=== PATIENT | female | born 1950 | race Asian ===

== ENCOUNTER 2018-10-10 06:16 | Day surgery (SDC) | payer OTHER ==
[2018-10-06 13:15] VITALS: BMI 27.8
[2018-10-10] MEDS ORDERED: TROPICAMIDE 1% OPHTH SOLN 15 ML BOTTLE ONE (07:00)
[2018-10-10] MEDS: PHENYLEPHRINE 2.5% OPHTH SOLN 15 ML BOTTLE OD SCH ×5 (07:10→07:30)
[2018-10-10] MEDS: CYCLOPENTOLATE HCL 1% OPHTH SOLN 2 ML BOTTLE OD SCH ×5 (07:10→07:30)
[2018-10-10] MEDS: KETOROLAC TROMETHAMINE 0.5% EYE DROP 1 DROP DROPS OD SCH ×5 (07:10→07:30)
[2018-10-10] MEDS: TROPICAMIDE 1% OPHTH SOLN 15 ML BOTTLE OD SCH ×5 (07:10→07:30)
[2018-10-10] MEDS: OFLOXACIN 0.3% OPHTHALMIC SOLUTION 5 ML BOTTLE OD SCH ×5 (07:10→07:30)
[2018-10-10] MEDS ORDERED: BACITRACIN/POLYMYXIN OPH OINT 3.5 GM TUBE ONE (07:13)
[2018-10-10] MEDS ORDERED: ACETYLCHOLINE 1:100 INTRA-OCUL 20 MG/2 ML KIT ONE (07:14)
[2018-10-10] MEDS ORDERED: TETRACAINE 0.5% OPHTH SOLN 2 ML BOTTLE ONE (07:14)
[2018-10-10] MEDS ORDERED: EPI-SHUGARCAINE (EPINEPHRINE 0.025% & LIDOCAINE-PF 0.75%) 4ML ONE (07:14)
[2018-10-10] MEDS ORDERED: BETAXOLOL HCL 0.25% OPHTHALMIC 10 ML DROPSBTL ONE (07:14)
[2018-10-10] MEDS ORDERED: NEO/POLYMYX B SULF/DEXAMETH OPHTHALMIC 5ML BOTTLE ONE (07:14)
[2018-10-10] MEDS ORDERED: POVIDONE-IODINE 5% OPHTHALMIC PREP 30 ML SOLUTION ONE (07:14)
[2018-10-10] MEDS ORDERED: EPINEPHrine/PF 1 MG/1 ML (1:1,000) AMPULE ONE (07:15)
[2018-10-10] MEDS ORDERED: MIDAZOLAM HCL 2 MG/2 ML SINGLE DOSE VIAL ONE (08:22)
[2018-10-10] MEDS ORDERED: TRYPAN BLUE 0.5 ML DISP.SYRIN ONE (08:22)
[2018-10-10] MEDS ORDERED: ACETAMINOPHEN 325 MG TABLET (FP) PO PRN ×2 (09:41→11:40)
[2018-10-10 10:06] VITALS: TEMP 98.3
[2018-10-10 10:32] VITALS: PULSE 77
--- NOTE | 2018-10-10 10:33 | OP ---
DATE OF OPERATION: 10/10/2018 PREOPERATIVE DIAGNOSIS: Cataract, right eye, hypermature cataract, morgagnian, right eye. POSTOPERATIVE DIAGNOSIS: Cataract, right eye, hypermature morgagnian cataract, right eye. SURGEON: Napoleon Tinsley MD BAND SINGER: Jessica Nation MD PROCEDURE: Hypermature cataract extraction, use of Trypan Blue, with intraocular lens implant, right eye. ANESTHESIA: Topical with sedation. ESTIMATED BLOOD LOSS: Less than 1 mL. COMPLICATIONS: None. SPECIMENS: None. PROCEDURE: The patient was identified in the holding area. After all risks, benefits and alternatives were explained to the patient informed consent was obtained. The right eye was marked with a marking pen and patient then entered the operating room on an eye stretcher. After formal timeout was performed topical tetracaine eyedrops were instilled on to the right eye and the patient was asked to sit up and look straight ahead and the right eye was appropriately marked for the cardinal axis of astigmatism using a toric bubble marker and marking pen. The patient was then asked to lie back down and the right eye was prepped and draped in the usual sterile fashion. An eyelid speculum was placed beneath the eyelids of the right eye. Then, the axis of astigmatism was marked on to the cornea using a toric marking pen and toric dial which was noted to be 95 degrees. Then, a superotemporal paracentesis incision was created using a 15-degree blade air bubble was injected and then Trypan Blue was injected to stain the anterior capsule and then viscoelastic was then injected to replace the Trypan Blue and air bubble into the anterior chamber. A 2.4-mm keratome blade was then used to make an inferotemporal incision. A 360-degree continuous curvilinear capsulorrhexis was then created using bent cystotome and Utrata forceps. Hydrodissection was performed using balanced saline solution on a cannula. Phacoemulsification was introduced and disassembled the nucleus in its entirety. Irrigation/aspiration was then used to remove any remaining cortical material from the eye. The capsular bag was reformed using viscoelastic. Gildardo model [id number] with a power of 9.0 diopters, serial number [id number] was inspected and found to be defect free and injected into the capsular bag Irrigation/aspiration was then used to remove any remaining viscoelastic from the eye including posterior to the optic. Then, the anterior chamber was reformed using balanced saline solution. Then, the intraocular lens was rotated so that the axis of astigmatism on the optic matched the axis of astigmatism on the cornea which was noted to be 95 degrees. Then, intracameral injections of Miochol and Miostat were then administered and the pupil came down and was round. All wounds were hydrated with balanced saline solution. It was noted that the inferotemporal wound was slightly leaky so an interrupted 10-0 nylon suture was placed at the main wound with the knot buried. The anterior chamber was deep. The lens was perfectly centered in the capsular bag with the axis of astigmatism at 95 degrees on the optic matching the cornea. The eye had adequate pressure and there was a red reflex present. Topical antibiotic eyedrops and ointment were then administered to the right eye. The eyelid speculum was removed from the right eye. The right eye was shielded. The patient tolerated the procedure well, left the operating room in stable condition to follow up in the eye clinic tomorrow morning at 10:00. Kasi [id number]
[2018-10-10 10:34] VITALS: BP 123/83
[2018-10-10] MEDS ORDERED: ONDANSETRON 4 MG/2 ML VIAL IVPUSH PRN (11:40)
[2018-10-10] MEDS ORDERED: LACTATED RINGERS SOLUTION 1,000 ML IV SCH (11:45)
== END 2018-10-10 10:30 | disposition home or self-care (01) ==
LOC: FASU 06:16
PROVIDERS: ATTEND Ophthalmology
PROC: 08RJ3JZ Replacement of Right Lens with Synthetic Substitute, Percutaneous Approach (ICD-10-PCS; principal; 2018-10-10 08:43)
DX: H25.21 Age-related cataract, morgagnian type, right eye (principal)

== ENCOUNTER → 2018-10-31 | Day surgery (SDC) | payer OTHER | END | disposition home or self-care (01) | LOC: FASU 09:03 ==

== ENCOUNTER 2020-09-08 07:59 | Day surgery (SDC) | payer OTHER ==
[2020-09-05 11:10] VITALS: BMI 28.3
[2020-09-08] MEDS ORDERED: MORPHINE 5 MG/10 ML AMP - FOR COMPOUNDING USE ONLY ONE (09:27)
[2020-09-08] MEDS ORDERED: MIDAZOLAM HCL 2 MG/2 ML SINGLE DOSE VIAL ONE (09:28)
[2020-09-08] MEDS ORDERED: SUCCINYLCHOLINE CHLORIDE 200 MG/10 ML SYRINGE ONE (09:28)
[2020-09-08] MEDS ORDERED: PROPOFOL 20 ML ONE ×2 (09:28→09:51)
[2020-09-08] MEDS ORDERED: LIDOCAINE HCL 2% 100 MG/5 ML DISP.SYRIN ONE (09:28)
[2020-09-08] MEDS ORDERED: oxyCODONE HCL 5 MG TABLET PO PRN (10:41)
[2020-09-08] MEDS ORDERED: ONDANSETRON 4 MG/2 ML VIAL IVPUSH PRN (10:41)
[2020-09-08] MEDS ORDERED: PROMETHAZINE HCL 25 MG/1 ML VIAL IVPB PRN (10:41)
[2020-09-08 12:23] VITALS: TEMP 97.6
[2020-09-08 12:24] VITALS: BP 122/72; PULSE 61
== END 2020-09-08 12:15 | disposition home or self-care (01) ==
LOC: FASU 07:59
PROVIDERS: ATTEND Orthopaedic Surgery
PROC: 0SQD4ZZ Repair Left Knee Joint, Percutaneous Endoscopic Approach (ICD-10-PCS; 2020-09-08)
PROC: 0SQD4ZZ Repair Left Knee Joint, Percutaneous Endoscopic Approach (ICD-10-PCS; 2020-09-08)
PROC: 0SBD4ZZ Excision of Left Knee Joint, Percutaneous Endoscopic Approach (ICD-10-PCS; principal; 2020-09-08 10:05)
DX: S83.242A Other tear of medial meniscus, current injury, left knee, initial encounter (principal); M93.262 Osteochondritis dissecans, left knee; M94.262 Chondromalacia, left knee; X58.XXXA Exposure to other specified factors, initial encounter; Y93.9 Activity, unspecified; Y92.9 Unspecified place or not applicable; Y99.9 Unspecified external cause status
CPT/HCPCS: 94760

== ENCOUNTER 2020-09-08 21:09 | Emergency (ER) | payer OTHER ==
[2020-09-08 21:18] VITALS: PULSE 66; TEMP 98.7; BMI 28.3
[2020-09-08] MEDS ORDERED: ACETAMINOPHEN 1000 MG/100 ML VIAL (NON FORMULARY) IVPB ONE (22:37)
[2020-09-08] MEDS ORDERED: ONDANSETRON 4 MG/2 ML VIAL IVPUSH ONE (22:38)
[2020-09-08] MEDS ORDERED: ONDANSETRON 4 MG/2 ML VIAL ONE (22:59)
[2020-09-08] MEDS ORDERED: ACETAMINOPHEN INJECTION 100 ML IVPB ONE (22:59)
[2020-09-08 23:37] LABS: ACTIVATED PTT 25.6 SECONDS (25.2-36.5)
[2020-09-08 23:38] LABS: ALBUMIN 3.8 g/dl (3.4-5.0); ALK PHOS 67 U/L (45-117); ANION GAP 5 MMOL/L (8-16); BILIRUBIN,TOTAL 0.6 mg/dl (0.2-1); CALCIUM 8.5 mg/dl (8.5-10); CHLORIDE 107 mmol/L (98-107); CO2 23 mmol/L (21-32); CREATININE 0.5 mg/dl (0.55-1.3); EOS % 0.2 % (0-4.5); GLUCOSE,RANDOM 114 mg/dl (74-106); HEMATOCRIT 42.9 % (32.4-45.2); HEMOGLOBIN 14.7 GM/dl (10.7-15.3); LYMPH % 12.8 % (8-40); MAGNESIUM 2.1 mg/dL (1.8-2.4); MCHC 34.3 g/dl (32.0-36.0); MEAN CELL VOLUME 93.3 fl (80-96); MEAN PLT VOLUME 8.3 fl (7.5-11.1); MONO % 5.7 % (3.8-10.2); NEUT % 80.3 % (42.8-82.8); PLATELET COUNT 267 K/MM3 (134-434); POTASSIUM 3.8 mmol/L (3.5-5.1); RDW 12.3 % (11.6-15.6); SGOT/AST 25 U/L (15-37); SGPT/ALT 30 U/L (13-61); SODIUM 135 mmol/L (136-145)
[2020-09-08 23:42] LABS: INR 1.14 (0.82-1.09); PROTHROMBIN TIME (PATIENT) 12.7 SEC (10.2-13.0)
[2020-09-09 01:09] LABS: LIPASE 177 U/L (73-393)
[2020-09-09 01:49] VITALS: BP 152/110
[2020-09-09 02:01] LABS: PH,URINE 6.5 (5.0-8.0); URINE APPEARANCE CLEAR; URINE BILIRUBIN NEGATIVE (NEGATIVE); URINE COLOR YELLOW; URINE GLUCOSE (UA) NEGATIVE (NEGATIVE); URINE KETONE NEGATIVE (NEGATIVE); URINE LEUK ESTERASE NEGATIVE (NEGATIVE); URINE NITRITE NEGATIVE (NEGATIVE); URINE PROTEIN NEGATIVE (NEGATIVE); URINE UROBILINOGEN 0.2 mg/dL (0.2-1.0)
[2020-09-09 02:02] LABS: LACTIC ACID 2.3 mmol/L (0.4-2.0)
[2020-09-09] MEDS ORDERED: SODIUM CHLORIDE 0.9% 500 ML INFUS.BAG IV ONE (02:30)
== END 2020-09-09 03:08 | disposition home or self-care (01) ==
LOC: FER 21:09
PROC: 3E0333Z Introduction of Anti-inflammatory into Peripheral Vein, Percutaneous Approach (ICD-10-PCS; principal; 2020-09-08)
PROC: 3E033GC Introduction of Other Therapeutic Substance into Peripheral Vein, Percutaneous Approach (ICD-10-PCS; 2020-09-08)
DX: R10.9 Unspecified abdominal pain (principal); R11.0 Nausea; R19.7 Diarrhea, unspecified
CPT/HCPCS: 36415; 74177-TC; 80053; 81003; 83605; 83690; 83735; 84484; 85025; 85610; 85730; 86850; 86900; 86901; 87086; 93005; 99285-25; C9803; J0131; Q9967; U0003

== ENCOUNTER 2023-08-30 11:35 | Emergency (ER) | payer OTHER ==
[2023-08-30 11:43] VITALS: TEMP 98.9; BMI 30.2
[2023-08-30 13:13] VITALS: BP 168/97; PULSE 76; RESP 16
== END 2023-08-30 14:15 | disposition home or self-care (01) ==
LOC: FER 11:35
DX: S09.90XA Unspecified injury of head, initial encounter (principal); H57.89 Other specified disorders of eye and adnexa; W19.XXXA Unspecified fall, initial encounter
CPT/HCPCS: 70150-TC-FY; 70450-TC; 73110-TC-LT-FY; 73110-TC-RT-FY; 99284-25